=== PATIENT | female | born 1950 | race Caucasian/White ===

== ENCOUNTER → 2019-07-18 | Outpatient (CLI) | payer MEDICARE ==
--- NOTE | 2019-07-18 13:11 | REP ---
LEFT WRIST, FOUR VIEWS: Four views of the left wrist are performed. There is a nondisplaced comminuted intra-articular fracture of the distal radius. No other acute fracture or dislocation is seen. IMPRESSION: Nondisplaced comminuted intra-articular fracture distal radius. Electronically Signed by Jacek Maldonado MD 07/18/2019 04:50 P
== END ==
LOC: M WUC 12:08
PROVIDERS: ATTEND Physician Assistant
DX: S52.572A Other intraarticular fracture of lower end of left radius, initial encounter for closed fracture (principal); X58.XXXA Exposure to other specified factors, initial encounter; Y92.9 Unspecified place or not applicable